=== PATIENT | female | born 2005 | race Caucasian/White ===

== ENCOUNTER 2024-02-27 14:00 | Outpatient (RCR) | payer BC, SELFPAY ==
--- NOTE | 2023-12-17 09:27 | PTOPEVAL1 ---
Assessment and note entered by Stevie Ball, PT Evaluation Information Assessment Status Evaluation Diagnosis Spina bifida, Generalized weakness Onset Chronic Subjective Information Reports that she is moving into a dorm room in May and she wants to improve her ability to transfer on her own. Denies any pain or other functional issues at this time. She is concerned about being able to transfer to higher surfaces. She has no se or sensation in bilateral legs and is very dependent on her arms at this time. Reported Pain Level Pain Score 0: Self Report Assessment PT Clinical Summary Patient presents with variable weakness in bilateral shoulder with difficulty transferring to low to high surfaces and comfortably from high to low. She will benefit from skilled therapy to address weakness deficits to improve transfer capability and safety. We discussed possibility of integrating a sliding board as needed. Plan of Care Interventions Manual Therapy,Neuro Re-education,Therapeutic Activities,Therapeutic Exercise,Self-Care/Home Management PT Services Indicated Yes Treatment Frequency and 1-2x/week for 8 visits Duration These treatments will address the objective and functional deficits as defined above. The patient will be advanced safely and appropriately in order for the patient to progress towards his/her prior level of function. Additional exercises will be introduced and as well as a comprehensive home exercise program upon discharge, if needed, ?to ensure carryover of functional gains achieved in the clinic. This treatment plan has been reviewed and agreement upon by the patient.
--- NOTE | 2023-12-17 09:27 | OPREHPOC ---
Outpatient Therapy Plan of Care This is a Multidisciplinary Plan of Care that may contain components documented by all disciplines (PT, OT, and ST.) PT Problem 1 PT Problem #1 Knowledge Deficit PT Goal 1 Goal [place] with HEP Target Visit 4 PT Problem 2 PT Problem #2 Impaired Strength PT Goal 1 Goal Improve silvana external rotation shoulder strength to 5/5 to improve stability with ADL transfers Target Visit 8 PT Goal 2 Goal Improve silvana shoulder flexion strength to 5/5 to improve lifting and reaching for push and pull transfers with ADL transfers PT Problem 3 PT Problem #3 Impaired Strength PT Goal 1 Goal Improve silvnaa periscapular strength to 4/5 to improve scapular stability for transfer stabilization with core shifting Target Visit 8 PT Problem 4 PT Problem #4 Impaired Functional Mobil PT Goal 1 Goal Demonstrate 6 inch low to high transfer without uncontrolled trunk shift or descending on rise to improve safety of transfers to elevated bed or toilet Target Visit 8
--- NOTE | 2023-12-23 10:41 | OTOPDC ---
Assessment and note entered by Keyshawn Lomas, VICTORIAR/[place], CHT Evaluation Information Diagnosis Spina bifida Subjective Information Patient reporting she is moving out of her parents' home in the fall to live on campus at [facility]. She is wanting to build strength to progress to independent with transfers as her dad assists with all transfers at this time. She is currently independent with bathing, dressing, toileting with the exception of the transfers. She reports no difficulties with hand use as it relates to being a student. She is left handed. She is also seeing PT at our clinic to work on upper body strengthening and functional transfers. Reported Pain Level Pain Score 0: Self Report Assessment OT Clinical Summary Patient referred to OT with dx of spina bifida with the goal of improving to independent with functional transfers as she transitions to living independently this fall. OT evaluation completed this date. Deficits noted with proximal UE strength for which PT is working on. Distal strength and functional fine motor coordination is WNL. No further skilled OT indicated at this time. Plan of Care OT Services Indicated No
--- NOTE | 2024-01-14 10:03 | PTOPEVAL1 ---
Assessment and note entered by Stevie Ball, PT Evaluation Information Assessment Status Progress Diagnosis Spina bifida, Generalized weakness Onset Chronic Subjective Information Patient reports that she feels much better following her first round of therapy. Reports that she is much more confident at this time. There are still a few things that she feels she can work on to ensure her independence and would like to focus on continued transfers and core activation. Reported Pain Level Pain Score 0: Self Report Assessment PT Clinical Summary Patient has demonstrated improved strength and functional transfer ability at this time. Has made remarkable progress and demonstrates improved confidence and functionality. Continues to show some difficulty with full self care and high to low transfers and will continue to benefit from skilled therapy to address this. Plan of Care Interventions Manual Therapy,Neuro Re-education,Therapeutic Activities,Therapeutic Exercise,Self-Care/Home Management PT Services Indicated Yes Treatment Frequency and 2x/week for 8 visits Duration These treatments will address the objective and functional deficits as defined above. The patient will be advanced safely and appropriately in order for the patient to progress towards his/her prior level of function. Additional exercises will be introduced and as well as a comprehensive home exercise program upon discharge, if needed, ?to ensure carryover of functional gains achieved in the clinic. This treatment plan has been reviewed and agreement upon by the patient.
--- NOTE | 2024-01-14 10:04 | OPREHPOC ---
Outpatient Therapy Plan of Care This is a Multidisciplinary Plan of Care that may contain components documented by all disciplines (PT, OT, and ST.) PT Problem 1 PT Problem #1 Knowledge Deficit PT Goal 1 Goal [place] with HEP Target Visit 4 Progress Met PT Problem 2 PT Problem #2 Impaired Strength PT Goal 1 Goal Improve silvana external rotation shoulder strength to 5/5 to improve stability with ADL transfers Target Visit 16 Progress Partially Met Comment Greatly improved. PT Goal 2 Goal Improve silvana shoulder flexion strength to 5/5 to improve lifting and reaching for push and pull transfers with ADL transfers Target Visit 16 Progress Partially Met Comment Improved, still showing some weakness PT Problem 3 PT Problem #3 Impaired Strength PT Goal 1 Goal Improve silvana periscapular strength to 4/5 to improve scapular stability for transfer stabilization with core shifting Target Visit 16 Progress Partially Met PT Problem 4 PT Problem #4 Impaired Functional Mobil PT Goal 1 Goal Demonstrate 6 inch low to high transfer without uncontrolled trunk shift or descending on rise to improve safety of transfers to elevated bed or toilet Target Visit 8 Progress Partially Met Comment Able to complete 4 in transfer at this time
--- NOTE | 2024-02-14 13:48 | OPREHPOC ---
Outpatient Therapy Plan of Care This is a Multidisciplinary Plan of Care that may contain components documented by all disciplines (PT, OT, and ST.) PT Problem 1 PT Problem #1 Knowledge Deficit PT Goal 1 Goal [place] with HEP Target Visit 4 Progress Met PT Problem 2 PT Problem #2 Impaired Strength PT Goal 1 Goal Improve silvana external rotation shoulder strength to 5/5 to improve stability with ADL transfers Target Visit 24 Progress Partially Met Comment Greatly improved. PT Goal 2 Goal Improve silvana shoulder flexion strength to 5/5 to improve lifting and reaching for push and pull transfers with ADL transfers Target Visit 24 Progress Partially Met Comment Improved, still showing some weakness PT Problem 3 PT Problem #3 Impaired Strength PT Goal 1 Goal Improve silvana periscapular strength to 4/5 to improve scapular stability for transfer stabilization with core shifting Target Visit 24 Progress Partially Met PT Problem 4 PT Problem #4 Impaired Functional Mobil PT Goal 1 Goal Demonstrate 6 inch low to high transfer without uncontrolled trunk shift or descending on rise to improve safety of transfers to elevated bed or toilet Target Visit 8 Progress Met PT Goal 2 Goal Demonstrate ability to perform floor to chair fall recovery transfer with CGA Target Visit 24 PT Goal 1 Goal Demonstrate ability to perform floor to chair fall recovery transfer with CGA Target Visit 24
--- NOTE | 2024-02-14 13:49 | PTOPPROG ---
Assessment and note entered by Stevie Ball, PT Evaluation Information Assessment Status Progress Diagnosis Spina bifida, Generalized weakness Onset Chronic Subjective Information Patient reports that she is doing better overall. She has been going to the gym and feeling like she is pushing herself a little more. Reports that she is still a little concerned about floor recovery to get back into her chair. Assessment PT Clinical Summary Patient has made excellent progress with gross shoulder girdle strengthening and functional activity. She continues to show difficulty with episodic functional transfers including to van and from floor to chair which she will need to be able to do for full functional independence. Will continue to benefit from skilled therapy to address these deficits. Plan of Care Interventions Manual Therapy,Neuro Re-education,Therapeutic Activities,Therapeutic Exercise,Self-Care/Home Management PT Services Indicated Yes Treatment Frequency and 2x/week for 8 visits Duration These treatments will address the objective and functional deficits as defined above. The patient will be advanced safely and appropriately in order for the patient to progress towards his/her prior level of function. Additional exercises will be introduced and as well as a comprehensive home exercise program upon discharge, if needed, ?to ensure carryover of functional gains achieved in the clinic. This treatment plan has been reviewed and agreement upon by the patient.
--- NOTE | 2024-03-03 09:29 | PCPTNOTE ---
Patient's parent called to cancel due to patient in the hospital due to breaking her leg on Saturday. Patient has canceled upcoming appointments.
--- NOTE | 2024-03-10 07:58 | PTOPDC ---
Assessment and note entered by Stevie Ball, PT Evaluation Information Assessment Status Discharge - Pt Not Present Diagnosis Spina bifida, Generalized weakness Onset Chronic Subjective Information Patient father contacted clinic stating that patient fell out of chair and suffered femur fracture. She is currently awaiting surgery at [facility] . Assessment PT Clinical Summary Patient will currently be discharged from therapy at this time due to surgical need and trauma care. Please refer to last progress note for discharge status. Patient had made excellent functional progress prior to fall at home. Plan of Care PT Services Indicated D/C at this time due to status change
== END 2024-03-16 13:38 | disposition still patient (30) ==
LOC: ANHGOSHPT 14:00
PROVIDERS: PCP Family Medicine Sports Medicine
DX: Q05.9 Spina bifida, unspecified (principal)
CPT/HCPCS: 97110; 97112; 97161; 97165; 97530

== ENCOUNTER 2024-02-29 13:15 | Emergency (ER) | payer BC, SELFPAY ==
--- NOTE | ~2024-02-29 | XR_ITS ---
EXAMINATION: XR tibia fibula RT 2V DATE: 02/29/2024 13:52 INDICATION: Right lower leg injury. TECHNIQUE: 2 views of right tibia and fibula were obtained. COMPARISON: None. FINDINGS: Partially visualized is a comminuted fracture of femoral diaphysis. Joint spaces are normal . There is a large knee joint effusion. IMPRESSION: 1. Comminuted fracture of femoral diaphysis. 2. Large knee joint effusion. Reviewed, dictated and finalized at location A.
--- NOTE | ~2024-02-29 | XR_ITS ---
EXAMINATION: XR femur RT min 2V DATE: 02/29/2024 13:51 INDICATION: Fall. TECHNIQUE: 2 views of the right femur on 4 radiographs were obtained. COMPARISON: None. FINDINGS: There is a comminuted fracture of diaphysis of right femur. The main distal fracture fragme nt demonstrates 8 mm lateral displacement, 14 degrees lateral angulation, and 5 degrees anterior angu lation. Joint spaces are normal. There is a large knee joint effusion. There are changes of posterior fusion procedure in lumbar spine. IMPRESSION: 1. Comminuted fracture of right femoral diaphysis. 2. Large knee joint effusion. Reviewed, dictated and finalized at location A.
--- NOTE | ~2024-02-29 | XR_ITS ---
EXAMINATION: XR foot RT 2V DATE: 02/29/2024 13:51 INDICATION: Right foot injury. TECHNIQUE: 2 views of right foot were obtained. COMPARISON: None. FINDINGS: There is mild hallux valgus. No fracture. Joint spaces are normal. IMPRESSION: 1. No fracture. Reviewed, dictated and finalized at location A. IMPRESSION: 1. No fracture.
--- NOTE | ~2024-02-29 | XR_ITS ---
Right Knee Technique: AP, lateral, and sunrise views were obtained. Clinical History: Injury Findings: There is an oblique fracture the distal femoral shaft, mildly displaced and probably mildly comminuted. Joint spaces are preserved without degenerative or erosive change. Moderate to large lai nt effusion is seen. Impression: Oblique mildly displaced comminuted fractures distal femoral shaft. Moderate to large knee joint effusion. Reviewed, dictated and finalized at location . Impression: Oblique mildly displaced comminuted fractures distal femoral shaft. Moderate to large knee joint effusion.
[2024-02-29 13:17] VITALS: BP 134/76; PULSE 107; RESP 18; TEMP 36.2; O2SAT 100
--- NOTE | 2024-02-29 14:20 | ED.FALL ---
HPI - Fall General Chief Complaint: Fall <JONAH Reyna Last Filed: 02/29/24 15:29> Stated Complaint: R leg pain s/p falling out of wheelchair <JONAH Reyna Last Filed: 02/29/24 15:29> Time Seen by Provider: 02/29/24 13:58 <JONAH Reyna Last Filed: 02/29/24 15:29> Source: patient <JONAH Reyna Last Filed: 02/29/24 15:29> Mode of arrival: ambulatory <JONAH Reyna Last Filed: 02/29/24 15:29> Limitations: no limitations <JONAH Reyna Last Filed: 02/29/24 15:29> History of Present Illness HPI Narrative: Patient is a 19 y/o female who presents to the ED with report of a fall from her wheelchair. Patient has hx of spina bifida and is wheelchair bound at baseline. She reports that she does not have any sensation from her mid to upper thighs down. Today, she was filling up her water bottle and spilled some water in front of her. She bent over to clean off the water and fell forward out of her wheelchair. She did not hit her head or lose consciousness. She states her right leg bent backwards behind her. She denies any pain in her right hip or right leg, but states her right leg has seemed more limp and rotated outward than normal. Denies any other injuries. <JONAH Reyna Last Filed: 02/29/24 15:29> Related Data Home Medications: Home Medications Medication Instructions Recorded Confirmed drospirenone (contraceptive) 4 mg 02/29/24 (28) tablet (Slynd) epinephrine 0.3 mg/0.3 mL 02/29/24 injection, auto-injector escitalopram oxalate 10 mg tablet mg 02/29/24 norethindrone (contraceptive) 0.35 mg 02/29/24 mg tablet <JONAH Reyna Last Filed: 02/29/24 15:29> Allergies/Adverse Reactions: Allergies Allergy/AdvReac Type Severity Reaction Status Date / Time No Known Allergies Allergy Verified 02/29/24 13:21 <Anita Quinonez PA-C - Last Filed: 02/29/24 15:29> Review of Systems Review of Systems: CONSTITUTIONAL: Denies fever, chills, or sweats. MUSCULOSKELETAL: See HPI. NEUROLOGIC: Denies headache, dizziness, numbness, or weakness. <Anita Quinonez PA-C - Last Filed: 02/29/24 15:29> All systems reviewed & are unremarkable except as noted in HPI and below <Anita Quinonez PA-C - Last Filed: 02/29/24 15:29> PMFSH Past Medical History Medical History: Medical History Spina bifida <Anita Quinonez PA-C - Last Filed: 02/29/24 15:29> Surgical History Surgical History: Surgical History History of lumbar fusion <Anita Quinonez PA-C - Last Filed: 02/29/24 15:29> Exam Narrative: GENERAL: Well appearing, well-nourished, non-toxic, in no acute distress. HEAD: Normocephalic, atraumatic. RESPIRATORY: Airway patent, respirations nonlabored. Clear to auscultation bilaterally, no rales, rhonchi, wheezing. CARDIOVASCULAR: Regular rate and rhythm without murmurs, rubs, or gallops. Pedal pulses intact. MUSCULOSKELETAL: Atrophy of BLE, no voluntary movements. Mild swelling noted to bilateral feet, which patient reports is chronic. No appreciable tenderness throughout RLE, no sensation. No tenderness over R hip joint. Able to move leg at hip joint w/o discomfort. R leg is mildly externally rotated. No appreciable swelling or bruising. SKIN: Warm, dry, normal color. NEURO: A&O X3. Speech clear. PSYCHIATRIC: Appropriate mood and affect. Normal interaction. <Anita Quinonez PA-C - Last Filed: 02/29/24 15:29> Course MANAGER CT/PA Physician Supervision This visit was performed by both a physician and an APC. I performed all aspects of the MDM as documented. <Glory Duenas MD - Last Filed: 02/29/24 21:21> Vital Signs Vital signs: Vital Signs Temperature 97.1 F L 05
[2024-02-29 15:30] VITALS: BP 128/86; PULSE 100; RESP 16; O2SAT 98
[2024-02-29 15:50] VITALS: BP 126/77; PULSE 110; RESP 18; O2SAT 100
[2024-02-29] MEDS: ONDANSETRON INJ 4 MG/2 ML VIAL IV PUSH (15:55)
== END 2024-02-29 15:56 | disposition short-term general hospital (02) ==
PROVIDERS: Emergency Provider Physician Assistant; PCP Family Medicine Sports Medicine
DX: S72.351A Displaced comminuted fracture of shaft of right femur, initial encounter for closed fracture (principal); Q05.9 Spina bifida, unspecified; W05.0XXA Fall from non-moving wheelchair, initial encounter
CPT/HCPCS: 73552; 73564; 73590; 73620; 96374; 99284; 99285; J2405

== ENCOUNTER 2024-03-24 15:58 | Outpatient (RCR) | payer BC, SELFPAY ==
--- NOTE | 2024-03-24 14:53 | PTOPDC ---
Assessment and note entered by Stevie Ball, PT Evaluation Information Assessment Status Discharge Diagnosis Spina bifida, weakness, functional decline Subjective Information Reports that she she had surgery on 03/03/24 for femur fracture. Fell out of her wheelchair cleaning up water. Not having any pain today. Feels she is able to do most everything she wanted to do with the exception of floor recovery which has been delayed due to recent femur fracture. Patient reports that she has returned to the gym and she will be working out as part of her routine moving forward to continue to strengthen and maintain core control and upper body strength. Assessment PT Clinical Summary Patient has met current goals for therapy and is suitable for discharge to [facility] at this time. We held on floor recovery due to current fracture of right femur. This will be given time to heal and possibly addressed in future. Patient is independent and complaint with home gym program. Plan of Care PT Services Indicated D/C to [facility] at this time
== END 2024-03-24 15:59 | disposition home or self-care (01) ==
LOC: ANHGOSHPT 15:58
PROVIDERS: PCP Family Medicine Sports Medicine
DX: Q05.9 Spina bifida, unspecified (principal)
CPT/HCPCS: 97110; 97530